=== PATIENT | female | born 1980 | race Caucasian/White ===

== ENCOUNTER 2024-08-08 06:54 | Emergency (ER) | payer OTHER, SELFPAY ==
--- OUTSIDE RECORDS SUMMARY | 2024-08-08 06:57 | XMS_ITS | Referral Summary ---
Author Organization [facility] Address [address] [place] [address] Care Team Providers Care Evidence Custodian Name Role Phone Blake Lozada MD Primary Care Provider [phone] Source Comments [facility],non-[facility] Affiliates and Associated Physician Practices is amultiple site organization consisting of ambulatory clinics and hospital sitesin [place], [place], [place] and [place]. This disclosure is being madepursuant to the Care Everywhere program and may not contain all information available regarding this patient. Last updated 18.[facility] Allergies No known active allergies Medications * Be aware that medications may not be up to date on this document. Alwaysverify current medications with the patient. Medication Sig Dispensed Refills Start Date End Date Status cyclobenzaprine (FLEXERIL) 10 MG tablet Take 1 Tab by mouth 3 times daily as needed for Muscle Spasms 30 Tab 0 01/11/2015 Active Additional Information Patient not taking.Reported on 03/04/2018 Norgestim-Eth Estrad Triphasic (ORTHO TRI-CYCLEN LO PO) Active BuPROPion HCl (WELLBUTRIN PO) Active ALPRAZolam (XANAX PO) Active clonazePAM (KLONOPIN) 1 MG tablet Take 1 mg by mouth 2 times daily Active Dexlansoprazole (DEXILANT PO) Active mupirocin (BACTROBAN) 2 % ointment Apply to affected area 3 times daily 44 g 11/05/2018 Active Active Problems No known active problems Social History Tobacco Use Types Packs/Day Years Used Date Smoking Tobacco: Former Smokeless Tobacco: Never Tobacco Cessation:Counseling Given: No Alcohol Use Standard Drinks/Week Comments No 0 (1 standard drink = 0.6 oz pur e alcohol) Sex and Gender Information Value Date Recorded Sex Assigned at Not on file Gender Identity Not on file Sexual Orientation Not on file Last Filed Vital Signs Vital Sign Reading Time Taken Comments Blood Pressure 110/70 11/05/2018 12:40 PM CDT Pulse 74 11/05/2018 12:40 PM CDT Temperature 36.9 C (98.4 F) 11/05/2018 12:40 PM CDT Respiratory Rate 16 11/05/2018 12:40 PM CDT Oxygen Saturation 98% 11/05/2018 12:40 PM CDT Inhaled Oxygen Concentration - - Weight 70.3 kg (155 lb) 11/05/2018 12:40 PM CDT Height 157.5 cm (5' 2 ) 11/05/2018 12:40 PM CDT Body Mass Index 28.35 11/05/2018 12:40 PM CDT Plan of Treatment Not on file Care Teams Evidence Custodian Relationship Specialty Start Date End Date Blake Lozada MD PCP - General 01/11/15
--- OUTSIDE RECORDS SUMMARY | 2024-08-08 06:57 | XMS_ITS | Encounter Summary ---
Author Organization [facility] Address [facility] [place] [address] Care Team Providers Care Aircraft Loadmaster Superintendent Name Role Phone Blkae Lozada MD Primary Care Provider [phone] Odette Philippe MD Unavailable Chase Mathew MD Primary Care Provider [phone]- [phone] Encounter Details Date Type Department Care Team (Late st Contact Info) Description 08/31/2023 MyChart Message Enc [facility] Medical Group Multispecialty Care - [facility] [address] [facility], [address] [place] [address] Bradley Oviedo, DO Question Social History Tobacco Use Types Packs/Day Years Used Date Smoking Tobacco: Former Cigarettes 1 15 2 000 - 2014 Smokeless Tobacco: Never Alcohol Use Standard Drinks/Week Comments Yes 0 (1 standard drink = 0.6 oz pur e alcohol) rarely drinks alcohol PHQ-2 Answer Date Recorded Patient Health Questionnaire-2 Score 0 05/11/2023 Comments No Sex and Gender Information Value Date Recorded Sex Assigned at Not on file Legal Sex Female 7:08 PM CDT Gender Identity Not on file Sexual Orientation Not on file documented as of this encounter Plan of Treatment Not on file documented as of this encounter Visit Diagnoses Not on filedocumented in this encounter Care Teams Aircraft Loadmaster Superintendent Relationship Specialty Start Date End Date Blake Lozada MD [address] [facility] [address] [place] [address] PCP - General 01/27/16 09/22/23 Chase Mathew MD [address] [facility] [address] [place] [address] PCP - General 09/23/23 Odette Philippe MD [address] [place] [phone] [facility] 09/01/18 documented as of this encounter
--- OUTSIDE RECORDS SUMMARY | 2024-08-08 06:57 | XMS_ITS | Encounter Summary ---
Author Organization [facility] Address [facility] [place] [address] Care Team Providers Care Oil Tanker Captain Name Role Phone Blake Lozada MD Primary Care Provider [phone] Odette Philippe MD Unavailable Chase Mathew MD Primary Care Provider [phone]- [phone] Encounter Details Date Type Department Care Team (Late st Contact Info) Description 08/30/2023 MyChart Message Enc [facility] Medical Group Multispecialty Care - [facility] [address] [facility], [address] [place] [address] Bradley Oviedo, DO Follow up Social History Tobacco Use Types Packs/Day Years [...] on filedocumented in this encounter Care Teams Oil Tanker Captain Relationship Specialty Start Date End Date Blake Lozada MD [address] [facility] [address] [place] [address] PCP - General 01/27/16 09/22/23 Chase Mathew MD [address] [facility] [address] [place] [address] PCP - General 09/23/23 Odette Philippe MD [address] [place] [phone] [facility] 09/01/18 documented as of this encounter
--- OUTSIDE RECORDS SUMMARY | 2024-08-08 06:57 | XMS_ITS | Clinical Summary ---
Author Organization [facility] Address [address] [place] [address] Care Team Providers Care Radio Tower Technician Name Role Phone Odette Philippe MD Unavailable Francesca Crowe MD Primary Care Provider [phone] Allergies No known active allergies Medications buPROPion XL 300 MG 24 hr tablet Take 1 tablet (300 mg total) by mouth daily. 08/16/2018 Active cyclobenzaprine 10 MG tablet Take 1 tablet (10 mg total) by mouth 3 (three) times daily as needed for Headaches. 01/11/2015 Active LINZESS 290 MCG capsule Take 145 mcg by mouth every morning before breakfast. Active ATIVAN 0.5 MG tablet Take 1 tablet (0.5 mg total) by mouth every 6 (six) hours as needed. 11/17/2022 Active omeprazole (PRILOSEC) 40 MG capsule Take 1 capsule (40 mg total) by mouth daily. Active ondansetron (ZOFRAN) 4 MG tablet Take 1 tablet (4 mg total) by mouth every 8 (eight) hours as needed. 03/17/2023 Active temazepam (RESTORIL) 30 MG capsule Take 1 capsule (30 mg total) by mouth nightly as needed. at betime 04/18/2023 Active Active Problems Problem Noted Date Diagnosed Date Pharyngoesophageal dysphagia 08/30/2023 Gastroesophageal reflux dise ase, unspecified whether esophagitis present 08/30/2023 Fibroid, uterine 09/06/2018 Family History Medical History Relation Comments Cancer Father SKIN CANCER Hypertension Father Colon Cancer Maternal Grandfather Rectal cancer Mother Relation Status Comments Daughter Alive Father Alive Maternal Grandfather Mother Alive Son Alive Social History Tobacco Use Types Packs/Day Years Used Date Smoking Tobacco: Former Cigarettes 1 15 2 000 - 2014 Smokeless Tobacco: Never Tobacco Cessation:Counseling Given: Not Answered Alcohol Use Standard Drinks/Week Comments Not Currently 0 (1 standard drink = 0.6 oz [...] Sign Reading Time Taken Comments Blood Pressure 109/72 10/07/2023 11:20 AM CDT Pulse 68 10/07/2023 11:20 AM CDT Temperature 36.7 C (98 F) 10/07/2023 11:07 AM CDT Respiratory Rate 18 10/07/2023 11:20 AM CDT Oxygen Saturation 94% 10/07/2023 11:20 AM CDT Inhaled Oxygen Concentration - - Weight 68 kg (150 lb) 10/01/2023 12:18 PM CDT Height 154.9 cm (5' 1 ) 10/01/2023 12:18 PM CDT Body Mass Index 28.34 10/01/2023 12:18 PM CDT Plan of Treatment Health Maintenance Due Date Last Done Comments Cervical Cancer Screening Pap Smear (Age 30 to 64) Every 3 Years 1979 Colorectal Cancer Screening Colonoscopy (10 Years) 1979 Annual Physical 1982 DTaP, Tdap and Td Vaccines (1 - Tdap) 1998 Hepatitis B Vaccines (1 of 3 - 19+ 3-dose series) 1998 Cervical Cancer Screening Pap with HPV Testing (Age 30 to 64) Every 5 Years 2009 Cervical Cancer Screening with HPV 2009 COVID-19 Vaccine (2023- season) 2024 Influenza Adult (#1) 2024 PHQ-2 (Physician [place]) 06/28/2024 05/11/2023 Mammogram Screening 09/13/2025 09/14/2023, 09/09/2022, 09/05/2021, Additional history exists Hepatitis C Completed 05/11/2023 HPV Vaccines Aged Out No longer eligi ble based on patient's age to complete this topic Meningococcal B Vaccine Aged Out No l onger eligible based on patient's age to complete this topic Meningococcal Vaccine Aged Out No cheli airam eligible based on patient's age to complete this topic Pneumococcal Vaccine: Pediatrics (0 to 5 Years) and At-Risk Patients (6 to 64 Years) Aged Out No longer eligible based on patient's age to complete this topic RSV Immunizations Under 20 Months Aged Out No longer eligible based on patient's age to complete this topic Procedures Procedure Name Priority Date/Time Associated Diagnosis Comments MG SCREENING W DARIO JACY DIGI Routine 09/14/2023 10:00 AM CDT Encounter for screening mammogram for malignant neoplasm of breast HC EIA QL HEPATITIS ABC B AG Routine 05/11/2023 3:17 PM PAPER PRODUCTS SUPERVISOR Liver mass Hepatic hemangioma Focal nodular hyperplasia of liver Abnormal finding on GI tract imaging from Last 3 Months or Most Recently Relevant to Health Maintenance Results * MG SCREENING W DARIO JACY DIGI (09/14/2023 10:00 AM CDT) Anatomical Region Laterality Modality Breast Bilateral Mammography 09/14/2023 12:4 3 PM CDT Narrative 09/14/2023 12:48 PM CDT EXAMINATION: Digital bilateral screening mammogram with 3-D tomosynthesis EXAM DATE/TIME: 09/14/2023 9:47 AM REASON FOR EXAM: SCREENING COMPARISON: 09/05/2021. 09/09/2022. Technique: Digital screening mammography of both breasts was performed in addition to 3-D Tomosynthesis technique. This study was read with the assistance of a computer-aided detection system. Tissue density: There are scattered areas of fibroglandular density. Findings: Benign calcifications. There is no new focal asymmetry, dominant mass lesion, area of skin thickening, or cluster of suspicious appearing calcifications in either breast to suggest malignancy. ===== IMPRESSION: ===== 1. Stable mammographic appearance with no new findings to suggest malignancy in either breast. Assessment: ACR BI-RADS 2 - BENIGN FINDING(S) Recommendation: 1:Routine Screening Bilateral Comments: Ordered By: FRANCESCA CROWE Interpreted By: Reynaldo Joseph, 09/14/2023 12:43 PM Francesca Crowe MD MAMMO Final Resu lt * HEPATITIS A,B,& C (05/11/2023 3:17 PM PAPER PRODUCTS SUPERVISOR) HEPATITIS B SURFACE AG NON-REACTI VE NON-REACTI VE 05/11/2023 4:41 PM PAPER PRODUCTS SUPERVISOR [facility] HEP B CORE TOTAL AB NON-REACTI VE NON-REACTI VE 05/11/2023 4:54 PM PAPER PRODUCTS SUPERVISOR [facility] HEP B SURFACE AB REAC 05/11/2023 4:41 PM PAPER PRODUCTS SUPERVISOR [facility] HAV IGM NON-REACTI VE NON-REACTI VE 05/11/2023 4:55 PM PAPER PRODUCTS SUPERVISOR [facility] HEPATITIS C AB NON-REACTI VE NON-REACTI VE 05/11/2023 4:53 PM PAPER PRODUCTS SUPERVISOR [facility] 05/11/2023 3:17 PM PAPER PRODUCTS SUPERVISOR Bradley Oviedo DO LABORATORY Final Result [facility] [address] [place] [address], [place] [phone] from Last 3 Months or Most Recently Relevant to Health Maintenance Insurance [facility] Advance Directives * Full Code (Latest Code Status on File) Date Activated Date Inactivated Comments 09/07/2018 11:47 AM 09/08/2018 1:00 PM Care Teams Radio Tower Technician Relationship Specialty Start Date End Date Francesca Crowe MD [address] [facility] [address] [place] [address] PCP - General 09/23/23 Odette Philippe MD [address] [place] [phone] [facility] 09/01/18
--- OUTSIDE RECORDS SUMMARY | 2024-08-08 06:57 | XMS_ITS | Encounter Summary ---
Author Organization [facility] Address [facility] [place] [address] Care Team Providers Care Ed Manager Name Role Phone Blake Lozada MD Primary Care Provider [phone] Odette Philippe MD Unavailable Chase Mathew MD Primary Care Provider [phone]- [phone] Encounter Details Date Type Department Care Team (Late st Contact Info) Description 08/26/2023 MyChart Message Enc [facility] Medical Group Multispecialty Care - [facility] [address] [facility], [address] [place] [address] Bradley Oviedo, DO Follow up [...] on filedocumented in this encounter Care Teams Ed Manager Relationship Specialty Start Date End Date Blake Lozada MD [address] [facility] [address] [place] [address] PCP - General 01/27/16 09/22/23 Chase Mathew MD [address] [facility] [address] [place] [address] PCP - General 09/23/23 Odette Philippe MD [address] [place] [phone] [facility] 09/01/18 documented as of this encounter
--- OUTSIDE RECORDS SUMMARY | 2024-08-08 06:57 | XMS_ITS | Clinical Summary ---
Author Organization [facility] Address [address] [place] [address] Care Team Providers Care Steam Room Attendant Name Role Phone Blake Lozada MD Primary Care Provider [phone] Source Comments [facility],non-owned Affiliates and Associated Physician Practices is amultiple site organization consisting of ambulatory clinics and hospital sitesin [place], [place], [place] and [place]. This disclosure is being madepursuant to the Care Everywhere program and may not contain all information available regarding this patient. Last updated 18.[facility] Allergies No known active allergies Medications * [...] Active Active Problems No known active problems Family History Medical History Relation Name Comments Cancer - Rectal Mother Asthma Neg Hx Autoimmune Disease Neg Hx Bipolar Disorder Neg Hx Cancer - Breast Neg Hx Cancer - Colon Neg Hx Cancer - Other Neg Hx Cancer - Ovarian Neg Hx Cancer - Pancreatic Neg Hx Cancer - Prostate Neg Hx Depression Neg Hx Eczema Neg Hx Hypertension Neg Hx Migraine Neg Hx Osteoporosis Neg Hx Seizures Neg Hx Sudd. <30 Neg Hx Thyroid Disease Neg Hx Ulcerative Colitis Neg Hx Relation Name Status Comments Father Alive Mother Alive Social History Tobacco Use Types Packs/Day [...] 11/05/2018 12:40 PM CDT Plan of Treatment Health Maintenance Due Date Last Done Comments COLOGUARD (AGES 45-75) - COL ON CA SCREENING 1979 COLON MONITORING 1979 COLONOSCOPY - COLON CA SCREENING 1979 CT COLONOGRAPHY - COLON CA SCREENING 1979 Colorectal Cancer Screening 1979 FIT - COLON CA SCREENING 1979 FLEX SIG - COLON CA SCREENING 1979 LIPID TESTING 1979 MAMMOGRAM 1979 PAP SMEAR 1979 HIV SCREENING 1994 HEPATITIS C SCREENING 02/13/1997 DTAP/TDAP/TD VACCINES (1 - Tdap) 1998 HEPATITIS B VACCINE (1 of 3 - 19+ 3-dose series) 1998 COVID-19 VACCINE ( - 2023-2 5 season) 2024 INFLUENZA VACCINE (#1) 2024 DEPRESSION SCREENING 06/28/2024 ZOSTER VACCINE (1 of 2) 2029 HIB VACCINE Aged Out No longer eligi ble based on patient's age to complete this topic HPV VACCINE Aged Out No longer eligi ble based on patient's age to complete this topic MENINGOCOCCAL (Group B) VACCINE Aged Out No longer eligible based on patient's age to complete this topic MENINGOCOCCAL VACCINE Aged Out No cheli airam eligible based on patient's age to complete this topic PNEUMOCOCCAL VACCINE Aged Out No long er eligible based on patient's age to complete this topic Care Teams Steam Room Attendant Relationship Specialty Start Date End Date Blake Lozada MD PCP - General 01/11/15
--- OUTSIDE RECORDS SUMMARY | 2024-08-08 06:57 | XMS_ITS | Encounter Summary ---
Author Organization [facility] Address [facility] [place] [address] Care Team Providers Care All Purpose Clerk Name Role Phone Blake Lozada MD Primary Care Provider [phone] Odette Philippe MD Unavailable Chase Mathew MD Primary Care Provider [phone]- [phone] Encounter Details Date Type Department Care Team (Late st Contact Info) Description 08/09/2023 MyChart Message Enc [facility] Medical Group Multispecialty Care - [facility] [address] [facility], [address] [place] [address] Bradley Oviedo, DO Mri Social History Tobacco Use Types Packs/Day Years [...] on filedocumented in this encounter Care Teams All Purpose Clerk Relationship Specialty Start Date End Date Blake Lozada MD [address] [facility] [address] [place] [address] PCP - General 01/27/16 09/22/23 Chase Mathew MD [address] [facility] [address] [place] [address] PCP - General 09/23/23 Odette Philippe MD [address] [place] [phone] [facility] 09/01/18 documented as of this encounter
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
[2024-08-08 07:31] VITALS: BP 151/88; PULSE 91; RESP 16; TEMP 36.6; O2SAT 100
--- NOTE | 2024-08-08 08:21 | PC.NURSE ---
Pt states she has decided to go to urgent care
--- OUTSIDE RECORDS SUMMARY | 2024-08-08 09:03 | XMS_ITS | Patient Health Summary ---
Author Organization [facility] Address [address] [place] [address] Care Team Providers Care Local Company Flatbed Truck Driver Name Role Phone Blake Lozada MD Primary Care Provider [phone] Note from [facility][note 3],non-owned Affiliates and Associated Physician Practices is amultiple site organization consisting of ambulatory clinics and hospital sitesin [place], [place], [place] and [place]. This disclosure is being madepursuant to the Care Everywhere program and may not contain all information available regarding this patient. Last updated 18.[facility] Allergies No known active allergies Medications [...] POINT OF CARE ORDERABLES [facility] POCT TESTING [address] [phone] * CT CERVICAL SPINE NON CONTRAST (01/11/2015 [...] grammatical or syntax problems by a trained medical i d sales. For questions about the report, please contact [...] grammatical or syntax problems by a trained medical i d sales. For questions about the report, please contact the Radiology Department. . IMPRESSION No fracture can be identified. Please see above. [facility] Nabeel Tracy MD CT ORDERABLES [...] grammatical or syntax problems by a trained medical i d sales. Findings: Soft tissue swelling is noted in [...] grammatical or syntax problems by a trained medical i d sales. Findings: Soft tissue swelling is noted in [...] Nabeel Tracy MD CT ORDERABLES Care Teams Local Company Flatbed Truck Driver Relationship Specialty Start Date End Date Blake Loazda MD PCP - General 01/11/15
--- OUTSIDE RECORDS SUMMARY | 2024-08-08 09:03 | XMS_ITS | Encounter Summary ---
Author Organization [facility] Address [facility] [place] [address] Care Team Providers Care Parts Order And Stock Clerk Name Role Phone Blake Lozada MD Primary Care Provider [phone] Odette Philippe MD Unavailable Chase Mathew MD Primary Care Provider [phone]- [phone] Encounter Details Date Type Department Care Team (Late st Contact Info) Description 08/31/2023 MyChart Message Enc [facility] Multispecialty Care - [facility] [address], [address] [place] [address] Bradley Oviedo, DO Question Social [...] on filedocumented in this encounter Care Teams Parts Order And Stock Clerk Relationship Specialty Start Date End Date Blake Lozada MD [address] [facility] [facility] [address] [place] [address] PCP - General 01/27/16 09/22/23 Chase Mathew MD [address] [facility] [address] [place] [address] PCP - General 09/23/23 Odette Philippe MD [address] [place] [phone] [facility] 09/01/18 documented as of this encounter
--- OUTSIDE RECORDS SUMMARY | 2024-08-08 09:03 | XMS_ITS | Clinical Summary ---
Author Organization [facility] Address [address] [place] [address] Care Team Providers Care Diamond Mounter Name Role Phone Blake Lozada MD Primary Care Provider [phone] Source Comments [facility],non-owned Affiliates and Associated Physician Practices is amultiple site organization consisting of ambulatory clinics and hospital sitesin [place], [place], [place] and [place]. This disclosure is being madepursuant to the Care Everywhere program and may not contain all information available regarding this patient. Last updated 18.[facility] Allergies No known active allergies Medications * [...] age to complete this topic Care Teams Diamond Mounter Relationship Specialty Start Date End Date Blake Lozada MD PCP - General 01/11/15
--- OUTSIDE RECORDS SUMMARY | 2024-08-08 09:03 | XMS_ITS | Referral Summary ---
Author Organization [facility] Address [address] [place] [address] Care Team Providers Care Carpet Inspector Finished Name Role Phone Blake Lozada MD Primary Care Provider [phone] Source Comments [facility] Affiliates and Associated Physician Practices is amultiple site organization consisting of ambulatory clinics and hospital sitesin [place], [place], [place] and [place]. This disclosure is being madepursuant to the Care Everywhere program and may not contain all information available regarding this patient. Last updated 18.[facility] [employer] Allergies No known active allergies Medications * [...] of Treatment Not on file Care Teams Carpet Inspector Finished Relationship Specialty Start Date End Date Blake Lozada MD PCP - General 01/11/15
--- OUTSIDE RECORDS SUMMARY | 2024-08-08 09:03 | XMS_ITS | Encounter Summary ---
Author Organization [facility] Address [facility] [place] [address] Care Team Providers Care Electric Cutter Operator Name Role Phone Blake Lozada MD Primary Care Provider [phone] Odette Philippe MD Unavailable Chase Mathew MD Primary Care Provider [phone]- [phone] Encounter Details Date Type Department Care Team (Late st Contact Info) Description 08/26/2023 MyChart Message Enc [facility] Multispecialty Care - [facility] [address], [address] [place] [address] Bradley Oviedo, DO Follow up [...] on filedocumented in this encounter Care Teams Electric Cutter Operator Relationship Specialty Start Date End Date Blake Lozada MD [address] [facility] [address] [place] [address] PCP - General 01/27/16 09/22/23 Chase Mathew MD [address] [facility] [address] [place] [address] PCP - General 09/23/23 Odette Philippe MD [address] [place] [phone] [facility] 09/01/18 documented as of this encounter
--- OUTSIDE RECORDS SUMMARY | 2024-08-08 09:03 | XMS_ITS | Encounter Summary ---
Author Organization [facility] Address [facility] [place] [address] Care Team Providers Care Submarine Cable Equipment Technician Name Role Phone Blake Lozada MD Primary Care Provider [phone] Odette Philippe MD Unavailable Chase Mathew MD Primary Care Provider [phone]- [phone] Encounter Details Date Type Department Care Team (Late st Contact Info) Description 08/30/2023 MyChart Message Enc [facility] Medical [facility] Multispecialty Care - [facility] [address], [address] [place] [address] Bradley Oviedo, DO Follow up [...] on filedocumented in this encounter Care Teams Submarine Cable Equipment Technician Relationship Specialty Start Date End Date Blake Lozada MD [address] [facility] [address] [place] [address] PCP - General 01/27/16 09/22/23 Chase Mathew MD [address] [facility] [address] [place] [address] PCP - General 09/23/23 Odette Philippe MD [address] [place] [phone] [facility] 09/01/18 documented as of this encounter
--- OUTSIDE RECORDS SUMMARY | 2024-08-08 09:03 | XMS_ITS | Clinical Summary ---
Author Organization [facility] Address [address] [place] [address] Care Team Providers Care Therapy Tech Name Role Phone Odette Philippe MD Unavailable Francesca Crowe MD Primary Care Provider [phone] Allergies No known active allergies Medications buPROPion [...] 2024 Influenza Adult (#1) 2024 PHQ-2 (Physician [place]) 06/28/2024 05/11/2023 Mammogram Screening 09/13/2025 09/14/2023, 09/09/2022, [...] ABC B AG Routine 05/11/2023 3:17 PM BATHING SUIT MAKER Liver mass Hepatic hemangioma Focal nodular hyperplasia [...] * HEPATITIS A,B,& C (05/11/2023 3:17 PM BATHING SUIT MAKER) HEPATITIS B SURFACE AG NON-REACTI VE NON-REACTI VE 05/11/2023 4:41 PM BATHING SUIT MAKER [facility] HEP B CORE TOTAL AB NON-REACTI VE NON-REACTI VE 05/11/2023 4:54 PM BATHING SUIT MAKER [facility] HEP B SURFACE AB REAC 05/11/2023 4:41 PM BATHING SUIT MAKER [facility] HAV IGM NON-REACTI VE NON-REACTI VE 05/11/2023 4:55 PM BATHING SUIT MAKER [facility] HEPATITIS C AB NON-REACTI VE NON-REACTI VE 05/11/2023 4:53 PM BATHING SUIT MAKER [facility] 05/11/2023 3:17 PM BATHING SUIT MAKER Bradley Oviedo DO LABORATORY Final Result [facility] [address] [place] [address], [place] [phone] from Last 3 Months or Most Recently Relevant to Health Maintenance Insurance [facility] Advance Directives * Full Code (Latest Code Status on File) Date Activated Date Inactivated Comments 09/07/2018 11:47 AM 09/08/2018 1:00 PM Care Teams Therapy Tech Relationship Specialty Start Date End Date Francesca Crowe MD [address] [facility] [address] [place] [address] PCP - General 09/23/23 Odette Philippe MD [address] [place] [phone] [facility] 09/01/18
--- OUTSIDE RECORDS SUMMARY | 2024-08-08 09:03 | XMS_ITS | Encounter Summary ---
Author Organization [facility] Address [facility] [place] [address] Care Team Providers Care Lacquer Polisher Name Role Phone Blake Lozada MD Primary Care Provider [phone] Odette Philippe MD Unavailable Chase Mathew MD Primary Care Provider [phone]- [phone] Encounter Details Date Type Department Care Team (Late st Contact Info) Description 08/09/[address] [facility] Medical [facility] Multispecialty Care - [facility] [address], [address] [place] [address] Bradley Oviedo, DO Mri Social [...] on filedocumented in this encounter Care Teams Lacquer Polisher Relationship Specialty Start Date End Date Blake Lozada MD [address] [facility] [address] [place] [address] PCP - General 01/27/16 09/22/23 Chase Mathew MD [address] [facility] [address] [place] [address] PCP - General 09/23/23 Odette Philippe MD [address] [place] [phone] [facility] 09/01/18 documented as of this encounter
== END 2024-08-08 10:15 | disposition left against medical advice (07) ==
PROVIDERS: PCP Family Medicine
DX: M79.601 Pain in right arm (principal)
CPT/HCPCS: 99199